=== PATIENT | male | born 1930 | race Caucasian/White ===

== ENCOUNTER 2016-11-27 14:31 | Inpatient (IN) | payer MEDICARE, OTHER ==
--- NOTE | ~2016-11-27 | HP ---
History And Physical [id number] [place]. [address] NAME: LUIS CHAN : 31 STATUS : ADM IN [facility]#: [id number] AGE: 86 ADM/REG DATE : 11/27/16 MR#: [id number] REPORT SERV DATE: 11/28/16 DICTATED BY: BAYRON REYNOLDS DATE: 11/27/16 REPORT STATUS : Draft TRANSCRIBED BY: MODL DATE: 11/27/16 DATE OF ADMISSION: 11/27/2016 IDENTIFICATION/CHIEF COMPLAINT: Mr. Chan is an 86-year-old gentleman who presents with left hip pain. HISTORY OF PRESENT ILLNESS: The patient has multiple medical problems and on 10/06/2016 he unfortunately fell. He subsequently developed some discomfort about his back and hip region and was admitted to the hospital on 10/10/2016 with this problem. He had multiple medical problems at the same time and subsequently with persistent pain, came to hip examination and x-rays that revealed an impacted left hip fracture for which on 10/15/2016 with informed consent, he came to surgery being closed reduction and internal fixation with three screws. Postoperatively, he had a relatively benign course and was discharged to [facility] for further care on 10/18/2016. After being seen in the office on 11/13/2016 with good looking x-rays, he was begun gentle weightbearing, but had pain developed and worsened over the course of the week. An x-ray was obtained yesterday revealing cut out of the most proximal screw and he presented to the office today for assessment. It was felt that he had propagated the fracture and the screw had cut out, and his fracture site was not healing well. He subsequently was admitted for more definitive care. 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 PAST SURGICAL HISTORY: TURP, elbow cyst surgery, foot surgery, skin cancer removed from scalp, IVC filter placement, and on 10/15/2016 hip pinning. MEDICATIONS: Omeprazole, potassium, aspirin, citalopram, dutasteride, isosorbide, lisinopril, multivitamin, furosemide, iron, , carvedilol, Coumadin, Ativan, simvastatin, oxygen at 2 liters/minute, guaifenesin, [place], nitroglycerin p.r.n., and Zofran p.r.n. ALLERGIES: PENICILLIN AND CLINDAMYCIN. SOCIAL HISTORY: The patient currently is a resident at [facility]. PHYSICAL EXAMINATION: GENERAL: Reveals a quite 86-year-old gentleman who is sitting in his wheelchair, somewhat sedated, and minimally communicative. HEAD AND NECK: He is able to move his head and neck, which are nontender. CHEST: Clear to auscultation. CARDIAC: Regular rate and rhythm. ABDOMEN: Soft and nontender. EXTREMITIES: Both upper extremities and right lower extremity, benign. Left lower History And Physical [address] [address] NAME: LUIS CHAN : 32 STATUS : ADM IN [facility]#: [id number] AGE: 86 ADM/REG DATE : 11/27/16 MR#: [id number] REPORT SERV DATE: 11/28/16 DICTATED BY: BAYRON REYNOLDS DATE: 11/27/16 REPORT STATUS : Draft TRANSCRIBED BY: WILSON DATE: 11/27/16 extremity is with painful range of motion, somewhat shortened, but neurovascularly intact to screening exam. His prior incisions healed well without evidence of fullness or pathology. DIAGNOSTIC DATA: X-rays reviewed in office today revealing evidence of his femoral neck fracture to have displaced and the most proximal screw has cut through the superior portion of the femoral head and is sitting at the lateral rim of the acetabulum. There are no other findings and cartilage joint space overall otherwise looks excellent. ASSESSMENT: Six weeks status post left hip CRPP having healed uneventfully, however, with beginning weightbearing last week, started having increasing pain, now has had failure of healing and now screw cut out superiorly. PLAN: At this point, we had a long discussion regarding options with he and his family and elect to proceed with admission to the hospital, medical assessment, and optimization, reversal of Coumadin, and we will proceed with conversion to a hemiarthroplasty with removal of current hardware. This was discussed with family at length. They do understand the informed consent issues regarding this procedure as well as this having been a possibility with his impacted fracture that we discussed in early October. At this point, they wish to proceed. EKATERINA/WILSON Bayron Reynolds M.D. / [id number] CC: Geovany Sebastian M.D.
--- NOTE | ~2016-11-27 | CN ---
Consultation Report [facility] [address] [place]. [address] NAME: LUIS CHAN : 32 STATUS : ADM IN PAT#: [id number] AGE: 86 ADM/REG DATE : 11/27/16 MR#: [id number] REPORT SERV DATE: 11/28/16 DICTATED BY: SERGIO GARCIA DATE: 11/28/16 REPORT STATUS : Draft TRANSCRIBED BY: MODL DATE: 11/28/16 CARDIOLOGY CONSULTATION DATE OF CONSULTATION: 11/28/2016 REASON FOR CONSULTATION: Cardiac risk assessment. HISTORY OF PRESENT ILLNESS: Mr. Chan is an 86-year-old male, known to me from the outpatient setting, who was admitted to the hospital under the care of Dr. Reynolds for anticipated revision of recent surgical intervention of left hip fracture. The patient has had decreased ambulation and increased pain with recent outpatient imaging demonstrating propagation of fracture at the site of previous repair on 10/15/2016. Based on these findings, he was admitted electively for a planned surgical repair this admission. From a cardiac standpoint, his history is notable for ST elevation NM in 01/2016, at which time his RCA was managed with a long drug-eluting stent. Postoperatively, he had some issues over the ensuing months with bleeding secondary to history of bladder cancer and the decision was ultimately made to discontinue his Plavix. He has continued on aspirin since then and has done well and although he has had occasional episodes of chest pain, these have been managed medically and there have been no recurrent cardiovascular events. He was started on Coumadin after his recent hip surgery and has been maintained on that. History is limited due to the patient's underlying progressive dementia, but per his son, who is at bedside, he has not had any complaints of chest pain. An echocardiogram in the outpatient setting recently demonstrated an improvement in his ejection fraction to 50% with no valvular disease. At this time, the patient is a bit confused after having a narcotic administered, but there is no additional history here the son provides. PAST MEDICAL HISTORY: 1. Hip fracture, status post closed reduction and pinning in 10/2016. 2. Coronary artery disease, history of STEMI in 01/2016, status post PCI with drug-eluting stent. 3. Heart failure with preserved ejection fraction estimated 50% by last echocardiogram. 4. History of DVT, on oral anticoagulant/warfarin, status post IVC filter. 5. Dementia. 6. Hypertension. 7. Hyperlipidemia. 8. Chronic kidney disease. 9. History of bladder cancer. MEDICATIONS: Reviewed per medical record notable for aspirin 81, warfarin, Coreg 6.25, Lasix, simvastatin, Imdur, lisinopril. Consultation Report [address]. [address] NAME: LUIS CHAN : 31 STATUS : ADM IN PAT#: [id number] AGE: 86 ADM/REG DATE : 11/27/16 MR#: [id number] REPORT SERV DATE: 11/28/16 DICTATED BY: SERGIO GARCIA DATE: 11/28/16 REPORT STATUS : Draft TRANSCRIBED BY: WILSON DATE: 11/28/16 ALLERGIES: PENICILLIN AND CLINDAMYCIN. FAMILY HISTORY: Noncontributory. 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 He has a history of remote tobacco abuse, 80-[id number]-[id number] history, quit many years ago. He has two sons, one of whom is at bedside and heavily involved in his care. REVIEW OF SYSTEMS: Per HPI; otherwise, negative. PHYSICAL EXAMINATION: VITAL SIGNS: Temperature 97.3, pulse 77, blood pressure 159/70, 94% on 1 L nasal cannula. GENERAL: Well-developed male, in no apparent distress. HEENT: Sclerae anicteric. Mucous membranes are moist. NECK: Supple. CARDIOVASCULAR: Regular. S1, S2. No murmurs appreciated. PULMONARY: Diminished inspiratory effort. Clear lung del rio bilaterally. ABDOMEN: Soft, nondistended, nontender. EXTREMITIES: Warm. Edema is present at the ankles. LABORATORY DATA: WBC 7.9, hemoglobin 12, hematocrit 36.1, platelets 281. Sodium 139, potassium 4.7, chloride 103, bicarb 28, BUN 34, creatinine 1.59, protein 6.3, albumin 2.5. AST and ALT 13 and 15. Chest x-ray demonstrates atelectasis on the right. No obvious cardiomegaly or airspace opacity. BNP 335. STUDIES: I reviewed the patient's cardiac catheterization. It demonstrated a good result after stenting on the right and nonobstructive disease in the left coronary circulation. EKG is not on the chart. An echocardiogram from 10/2016 has been reviewed, notable for an EF of 50%, no valvular heart disease, hypokinesis of the inferior wall. IMPRESSIONS/RECOMMENDATIONS: 1. Recent hip fracture, status post closed reduction/fixation with propagation. 2. Coronary artery disease, status post prior percutaneous coronary intervention in 01/2016 with drug-eluting stent, currently off Plavix, on aspirin and Coumadin. 3. History of deep vein thrombosis. 4. Heart failure with preserved ejection fraction. 5. Hypertension. 6. Chronic kidney disease. The patient has multiple medical issues, but of unique importance in the perioperative period is his history of coronary artery disease. Although he has had a drug-eluting stent, Consultation Report [facility] [address] [facility] [place]. [address] NAME: LUIS CHAN : 32 STATUS : ADM IN [facility]#: [id number] AGE: 86 ADM/REG DATE : 11/27/16 MR#: [id number] REPORT SERV DATE: 11/28/16 DICTATED BY: SERGIO GARCIA DATE: 11/28/16 REPORT STATUS : Draft TRANSCRIBED BY: WILSON DATE: 11/28/16 he has done well off Plavix with no recurrent events. Obviously, surgery increases his risk of a cardiovascular event and this is best managed by continuing his aspirin if it is felt reasonable to do so from the orthopedic standpoint. I would strongly favor this. We will check an EKG this morning, but unless there are dramatic ischemic changes, I would favor no additional cardiac testing and proceeding with surgery, albeit at elevated risk due to his complicated cardiovascular history. I will continue to evaluate the patient clinically and if there are any signs or symptoms suggestive of a coronary event, we can treat this as needed, but I am reassured by his good angiographic result and lack of obstructive disease on his prior cardiac cath and the duration of approximately 10 months since his NM that this is an unlikely clinical occurrence if aspirin is to be continued. Thank you for the consultation. We will follow with you. BENJIE/WILSON Sergio Garcia MD / [id number] CC: Geovany Sebastian M.D.
--- NOTE | ~2016-11-27 | DS ---
Discharge Summary [facility] [address] [place]. [address] NAME: LUIS CHAN : 32 STATUS : DIS IN PAT#: [id number] AGE: 86 ADM/REG DATE : 11/27/16 MR#: [id number] REPORT SERV DATE: 12/19/16 DICTATED BY: BAYRON REYNOLDS DATE: 12/18/16 REPORT STATUS : Draft TRANSCRIBED BY: WILSON DATE: 12/18/16 Data Collection from hospitalization DISCHARGE DIAGNOSES: 1. Left failed closed reduction percutaneous pinning femoral neck fracture (hip). 2. Hypertension. 3. Congestive heart failure. 4. Coronary artery disease. 5. History of ST-elevation myocardial infarction. 6. History of cerebrovascular accident x3. 7. Dementia. 8. History of bladder cancer. 9. Chronic kidney disease. 10.Essential tremor. 11.Benign prostatic hypertrophy. 12.History of pancreatitis. 13.Peptic ulcer disease. 14.Hypercholesterolemia. CONSULTATIONS: Shilpa José NP. Dr. Sergio Garcia. Dr. Bayron Montgomery. PROCEDURE: Left hip conversion from closed reduction, percutaneous pinning, left hip hemiarthroplasty, 12/02/2016. PATHOLOGY: Femoral head with extensive medullary hemorrhage and fibrosis (history of fracture), left hip. DISCHARGE MEDICATIONS: Aspirin 81 mg every morning, Coreg 6.25 mg twice a day, Celexa 20 mg every morning, Mycelex 10 mg five times a day as instructed, Colace 100 mg twice a day, Avodart 0.5 mg every morning, ferrous sulfate 325 mg twice a day, Imdur 30 mg every morning, Prinivil 10 mg every morning, multivitamins with minerals one tablet every morning, Prilosec 20 mg before breakfast, Mirapex 0.125 mg at bedtime, Seroquel 12.5 mg at bedtime, Zocor 40 mg at bedtime, Demadex 20 mg daily, Tylenol 650 mg every four hours as needed, Dulcolax 15 mg as needed, Nitrostat 0.4 mg as needed, Zofran 4 mg every four hours as needed, MiraLAX powder 17 g every morning, Seroquel 12.5 mg at bedtime as needed, Klor-Con 20 mEq every morning, Med Plus 60 mL twice a day, XPECT 400 mg daily as needed, Ultram 50 mg one to two tablets every six hours as needed for pain. CONDITION ON DISCHARGE: Stable. DISPOSITION: The patient was discharged to [facility]. HOSPITAL COURSE: This is an 86-year-old man, who presented to the hospital with left hip pain. He had a fall and subsequently developed some discomfort in his back and hip region. He had been admitted to the hospital on 10/10/2016 with this problem. He has multiple medical problems and subsequently had persistent pain. X-rays had revealed an impacted left hip fracture. On 10/15/2016, he had undergone surgical intervention with closed reduction and internal fixation with three screws. Postoperatively, he had a relatively benign course Discharge Summary [id number] [place]. [address] NAME: LUIS CHAN : 31 STATUS : DIS IN PAT#: [id number] AGE: 86 ADM/REG DATE : 11/27/16 MR#: [id number] REPORT SERV DATE: 12/19/16 DICTATED BY: BAYRON REYNOLDS DATE: 12/18/16 REPORT STATUS : Draft TRANSCRIBED BY: WILSON DATE: 12/18/16 and was discharged to [facility] for further care on 10/18/2016. After being seen in the office on 11/13/2016 with good looking x-rays, he started gentle weightbearing, but then he had pain that developed and worsened over the course of the week and x-ray was obtained on the day prior to this admission revealing cut out of the most proximal screw. It was felt that he had propagated the fracture and the screw had cut out, and his fracture site was not healing well. He was admitted to the hospital at this time for further evaluation and treatment. Upon admission, a long discussion was held regarding treatment options with the patient and his family. We were going to perform reversal of Coumadin and then proceed with conversion to a hemiarthroplasty with removal of the current hardware. This was discussed with the patient's family at length and they wanted to proceed. He was seen by Shilpa José. The patient has had three cerebrovascular accidents in the past. He was confused. He does have a history of TIA. He was off his Coumadin at this time. He did have mechanical DVT prophylaxis. Coreg and Imdur were continued. He was also off aspirin, which would be resumed postoperatively. He has a history of myocardial infarction in January of 2016. He was placed on a cardiac diet. Nitroglycerin would be ordered as needed if he had chest pain. He is on several cardiac medications that will be continued, and his blood pressure is controlled at the present time. Potassium was held. Avodart was continued for his benign prostatic hypertrophy. Zocor was continued. We were going to check hemoglobin A1c. Following day, he was seen by Dr. Sergio Garcia for cardiac risk assessment. From a cardiac standpoint, his history is notable for ST-elevation myocardial infarction in 2015 at which time, his right coronary artery was managed with a long drug-eluting stent. Postoperatively, he had some issues over the ensuing months with bleeding secondary to a history of bladder cancer, and the decision was ultimately made to discontinue his Plavix. He had continued on aspirin since then and had done well, although he had occasional episodes of chest pain. These had been managed medically and there had been no recurrent cardiovascular events. He had been started on Coumadin after his recent hip surgery and had been maintained on that. He does have progressive dementia. Surgery increases his risk of a cardiovascular event and it was felt this would best be managed by continuing his aspirin if it was felt reasonable to do so from an orthopedic standpoint. He strongly favored this. An EKG was going to be obtained, but unless there were dramatic ischemic changes, he would favor no additional cardiac testing and proceeding with surgery. Chest x-ray showed right pleural effusion. On 11/29/2016, INR level was still elevated. Surgery was on hold. Warfarin remained on hold at this time. Creatinine level decreased to 1.19. He did have left hip pain. Over the next couple of days, plans were being made to proceed with surgical intervention. On 12/30/2016, he was taken to the operating room, where he underwent the above-mentioned procedure. He tolerated this well and there were no complications. On postop day #1, he was up sitting on the right side of the bed. He was going to begin physical therapy that day, had some confusion and agitation. His dressings were clean, dry, and intact. He was evaluated by Occupational and Physical Therapy. On 12/04/2016, Speech/Language Pathology performed a bedside swallow evaluation. Aspiration precautions were in place. The patient did have overt signs and symptoms of aspiration. The patient was seen by Dr. Bayron Montgomery. The patient did have some hematuria. The patient does have benign prostatic hypertrophy, recommended leaving the Delvalle in place and minimize his blood thinner. He had had some blood-tinged urine with clots in his diaper. On Discharge Summary [id number] [place]. [address] NAME: LUIS CHAN : 31 STATUS : DIS IN PAT#: [id number] AGE: 86 ADM/REG DATE : 11/27/16 MR#: [id number] REPORT SERV DATE: 12/19/16 DICTATED BY: BAYRON REYNOLDS DATE: 12/18/16 REPORT STATUS : Draft TRANSCRIBED BY: MODL DATE: 12/18/16 12/05/2016, he had slept well. IV hydralazine was being given as needed. Lisinopril was continued. Creatinine level was 1.14. Blood pressure was stable. There was destiny blood noted in the Delvalle catheter. All of his narcotics and sedatives were held due to his acute encephalopathy. Speech/Language pathology performed another bedside swallow evaluation. He did have overt signs and symptoms of aspiration with thin liquids. Aspiration precautions remained in place. On 12/07/2016, the head of his bed was elevated at 30 degrees. SAL hose was in place. INR level was 1.3. He was off aspirin and Coumadin. Proton pump inhibitor continued. Creatinine level was 0.89. His urine was yellow. He was much more alert. He was eating well. The next day, he seemed to be doing much better. He did not sleep well the previous evening. SAL hose remained in place. Hematuria resolved. He had had some leg cramping. Seroquel was being given. On 12/09/2016, he slept very well the previous evening. Discharge instructions were given. Due to his improved and stable condition, he was discharged to [facility] with the above-stated instructions. Information collected by: Laurie Krueger I submit the above information as my discharge summary. TG/WILSON aByron Reynolds M.D. / [id number] CC: Geovany Sebastian M.D. Bayron Montgomery M.D. MD Ruben Angela MD [facility]
--- NOTE | ~2016-11-27 | OP ---
Record Of Operation [facility] [address] [place]. [address] NAME: LUIS CHAN : 32 STATUS : ADM IN PAT#: [id number] AGE: 86 ADM/REG DATE : 11/27/16 MR#: [id number] REPORT SERV DATE: 12/03/16 DICTATED BY: BAYRON REYNOLDS DATE: 12/02/16 REPORT STATUS : Draft TRANSCRIBED BY: MODL DATE: 12/02/16 DATE OF PROCEDURE: POSTOPERATIVE DIAGNOSES: Left failed closed reduction percutaneous pinning, femoral neck fracture (hip). POSTOPERATIVE DIAGNOSES: Left failed closed reduction percutaneous pinning, femoral neck fracture (hip). PROCEDURES PERFORMED: 1. Left hip conversion from closed reduction percutaneous pinning. 2. Left hip hemiarthroplasty. SURGEON: Bayron Reynolds M.D. ROLLER CHECKER: Michel Anaya. ANESTHESIA: General. PROCEDURE IN DETAIL: The patient was clearly identified and after obtaining informed consent, was brought to the operating room at [facility] where he was induced under general anesthesia, placed carefully in the right lateral decubitus position and has his left lower extremity and flank prepped and draped in usual manner. This concluded, after appropriate time-out procedure was performed, the distal incision that was used previously to place the three screws into the femoral head region is opened and subsequently by gently palpating the soft tissues, the screw heads were not easily found within the soft tissues. It was felt appropriate to begin the approach then. Therefore, the posterolateral approach to the hip is formed. Skin was divided, fascial planes were elevated. Hemostasis was obtained with electrocautery and a Charnley retractor was applied. Palpating more distally along the approach, the screws were identified, but there was a lot of fibrous tissue over this area. Therefore, the incisions were then joined surgery whereupon the screw heads were then visualized and carefully removed uneventfully. The piriformis more proximally that was identified, tagged, divided and retracted over the sciatic nerve, felt deep in the wound at which point, the joint capsule and short rotators were carefully divided. At which point, the hip fracture exposed, there was noted to be a delayed union, but there was no evidence of infection or other pathology. It was widely displaced and the screw was prominent, exposing the femoral neck. It was divided uneventfully, whereupon the femoral head and tissues were all removed. The acetabulum has minimal scuffing, overall looks rather reasonably acceptable for hemiarthroplasty and therefore, a trial of a 55-mm head looks excellent. The proximal femur was exposed, structures posteromedial to the greater trochanter removed followed by shiloie cutter, canal finder, reamer with lateralizing to size 8; whereupon broaching was performed with a size 8 stem. Excellent stability was noted. Trialing with a 1.5 neck length bipolar, there was excellent leg length, stability, and kickback. Lesser trochanters were then preserved at the appropriate position on the ischium when palpated. Whereupon the trials were removed, the permanent implants are uneventfully placed. At which point, the area was copiously irrigated. Tranexamic acid Record Of formerly [facility] [address] [place]. [address] NAME: LUIS CHAN : 32 STATUS : ADM IN [facility]#: [id number] AGE: 86 ADM/REG DATE : 11/27/16 MR#: [id number] REPORT SERV DATE: 12/03/16 DICTATED BY: BAYRON REYNOLDS DATE: 12/02/16 REPORT STATUS : Draft TRANSCRIBED BY: MODL DATE: 12/02/16 topically was used through the case. Whereupon this concluded the capsule piriformis, fascia overlying the screw holes, and deep fascia that is all closed in layers. Whereupon the legs then carefully cleansed and dressed. The patient was then allowed to awaken and was transferred to the recovery room in stable condition, having tolerated the procedure well. ESTIMATED BLOOD LOSS: 150 mL. FLUIDS: 500 mL. TOURNIQUET TIME: None. PATHOLOGY: Sent specimen. MICROBIOLOGY: None. COMPLICATIONS: None. SPONGE AND NEEDLE COUNTS: Reportedly correct. ANTIBIOTICS: Administered appropriately preoperatively and ordered to be discontinued within 23 hours. IMPLANTS: DePuy hip system, femur Speculator, size 8 standard +1.5/32 bipolar head with size 55. EKATERINA/HILDAL Bayron Reynolds M.D. / [id number] CC: Geovany Sebastian M.D.
--- NOTE | ~2016-11-27 | CN ---
Consultation Report [facility] [address] [place]. [address] NAME: LUIS CHAN : 32 STATUS : ADM IN PAT#: [id number] AGE: 86 ADM/REG DATE : 11/27/16 MR#: [id number] REPORT SERV DATE: 11/28/16 DICTATED BY: SHILPA RAINEY DATE: 11/28/16 REPORT STATUS : Draft TRANSCRIBED BY: MODL DATE: 11/28/16 CONSULTATION DATE OF CONSULTATION: 11/27/2016 REQUESTING PHYSICIAN: Mike Reynolds M.D. IDENTIFYING DATA: 1. PCP, Bird Clement at the [facility] and also, the patient sees Dr. Ruben Gillette at the [facility]. 2. Packaging Mechanic, Sergio Garcia MD. 3. Neurologist in the past, Pari Yates MD. 4. Urologist, Dick Hurtado M.D. 5. Orthopedist, Mike Reynolds M.D. HISTORY OF PRESENT ILLNESS: This is an 86-year-old male with a longstanding history of coronary artery disease as well as CVA x3, a DVT with IVC filter, TIAs, PA, hypercholesterolemia, CHF, chronic kidney disease stage III. He presents to Dr. Mike Reynolds for being admitted for left femoral neck fracture with a failed implant. The patient previously had surgery on the left hip on 10/15/2016. Now, the implant has failed. We were consulted for surgical clearance and risk for possible surgery in the a.m. for left hip conversion to a hemiarthroplasty. The patient's history was obtained through interview with the patient's son, Luis Chan, and the patient is pleasantly confused at present time. He is taking p.o. medications for pain. Also, coupled with review of information was obtained in [place], [facility], senior environmental consultant's notes, and some old medical records. PAST MEDICAL HISTORY: 1. CVA x3, last noted in 11/2015. 2. Hypertension. 3. Dementia. 4. Hearing loss for which he uses hearing aids. 5. Essential tremor. 6. Chronic lymphedema. 7. Coronary artery disease. 8. DVT in 2011 with IVC filter. 9. Hypercholesterolemia. 10.TIA 11/26/2014. 11.PA 01/13/2016. 12.Colon polyps. 13.Pancreatitis. 14.PUD. 15.CHF with EF noted at 45% to 50%. 16.Presbyopia. 17.Positive TB test in the past. Consultation Report [facility] [address] [place]. [address] NAME: LUIS CHAN : 31 STATUS : ADM IN PAT#: [id number] AGE: 86 ADM/REG DATE : 11/27/16 MR#: [id number] REPORT SERV DATE: 11/28/16 DICTATED BY: SHILPA RAINEY DATE: 11/28/16 REPORT STATUS : Draft TRANSCRIBED BY: MODL DATE: 11/28/16 18.Arthritis. 19.Bladder cancer. 20.UTI that was previously positive with Morganella and Citrobacter. 21.Chronic kidney disease stage III with baseline creatinine of 1.4-1.8. 22.Bladder tumor. 23.PTSD. HOME MEDICATIONS: 1. Aspirin 81 mg p.o. every morning. 2. Coreg 6.25 mg p.o. twice a day. 3. Celexa 20 mg p.o. every morning. 4. Avodart 0.5 mg p.o. every morning. 5. Ferrous sulfate 325 mg p.o. twice a day. 6. Lasix 20 mg p.o. before breakfast and supper. 7. Guaifenesin 400 mg p.o. daily p.r.n. cough. 8. [place] 7.5/325 mg one tablet p.o. every four hours p.r.n. 9. Imdur 30 mg p.o. every morning. 10.Lisinopril 10 mg p.o. every morning, held for systolic blood pressure less than 90. 11.Ativan 0.25 mg p.o. at bedtime. 12.Multivitamin with minerals tablet, one tablet p.o. every morning. 13.Nitrostat stat 0.4 mg sublingual p.r.n. chest pain. 14.Omeprazole or Prilosec 20 mg p.o. before breakfast. 15.Zofran 4 mg p.o. every four hours p.r.n. nausea. 16.MiraLAX powder 17 g p.o. every morning. 17.Potassium chloride 20 mEq p.o. every morning. 18.Zocor 40 mg p.o. at bedtime. 19.Medication named Med Plus 2.0, 60 mL p.o. twice a day for decreased albumin. 20.Coumadin 5 mg p.o. before supper. ALLERGIES: NOTED ASPIRIN AND PENICILLIN EVEN THOUGH THE PATIENT IS ON HOME MEDICATION OF ASPIRIN 81 MG P.O. EVERY MORNING. SOCIAL HISTORY: The patient had previous tobacco use, but quit years ago, was a 30-pack a year smoker. Has two sons. 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 Has a single level home. Uses a walker and has a handicap van. FAMILY HISTORY: The patient is an only child. Mother had CHF, hip problems, dementia and was at 85 years old. Father had a hip repair, at 86 years old. PAST SURGICAL HISTORY: 1. Prostate symptoms, BPH on 06/04/2012 for which the patient had a cystoscopy with TURP. 2. Skin cancer on his head removed. 3. IVC filter placed in 2011 for DVT. 4. Cardiac cath with percutaneous coronary intervention on 01/13/2016. 5. Left elbow cyst removed. Consultation Report [address] [place]. [address] NAME: LUIS CHAN : 32 STATUS : ADM IN [facility]#: [id number] AGE: 86 ADM/REG DATE : 11/27/16 MR#: [id number] REPORT SERV DATE: 11/28/16 DICTATED BY: SHILPA RAINEY DATE: 11/28/16 REPORT STATUS : Draft TRANSCRIBED BY: WILSON DATE: 11/28/16 6. Bilateral cataract surgery in May of 2015. 7. History of bladder cancer for which he receives a TURP in 2011. REVIEW OF SYSTEMS: Negative other than what is in HPI. The patient is confused pleasantly at present. He is on p.o. pain medication for his left heel. He has no shortness of breath. No fever. No chest pain. No nausea and vomiting. No abdominal pain. Displays no agitation. PHYSICAL EXAMINATION: VITAL SIGNS: Vital signs from today; blood pressure 105/66, respiratory rate 16, heart rate 67, temperature 98.3, O2 sat 94% on room air. NEUROLOGIC: This is a pleasant 86-year-old male, resting in bed, playing with his IV tubing. He is pleasantly confused, but in no acute distress. HEAD: Atraumatic, normocephalic. NECK: Supple. Trachea is midline. No JVD noted. No obvious thyromegaly or lymphadenopathy. EENT: Sclerae are nonicteric. Pupils are equal, reactive to light. His nares are patent. His mucous membranes are moist. His tongue is midline without deviation. His soft palate rises equally on phonation. CHEST: He has no pain with palpation. LUNGS: Clear to auscultation bilaterally. Has normal respiratory effort. No increased work of breathing with conversation. CARDIOVASCULAR: S1, S2. Placed in order for defensive monitoring with continuous O2 sats, auscultation of regular rhythm, rate presently at 70. ABDOMEN: Soft, nontender. Bowel sounds are active. No organomegaly palpable. He does have an adult diaper in place for urinary incontinence. EXTREMITIES: Pulses are present bilaterally, but diminished. No calf tenderness. He does have bilateral edema. Has SCDs and TEDs for prophylaxis. SKIN: Warm and dry. No unusual rashes or lesions. Normal color and turgor for age. PSYCHIATRIC: The patient is pleasant, not cooperative at present time. He is confused. His son is at bedside to reorient him. LABORATORY DATA: Sodium 139, potassium 4.7, chloride 103, BUN 34, creatinine 1.59, GFR 45, glucose 116, calcium 8.9. White blood cell 7.9, hemoglobin 12.0, hematocrit 36.1, platelets 280. INR 2.8. ALT 15, AST 13, total bilirubin 0.6, alkaline phosphatase 74. The patient has a chest x-ray that was ordered. EKG from today on 11/27/2016 is normal sinus rhythm with a sinus arrhythmia. Interpretation of left axis deviation with a pulmonary disease pattern. Echo obtained on 10/13/2016 noted systolic CHF with an EF of 45% to 50%, mild diastolic dysfunction, normal RV size and systolic function. ASSESSMENT AND PLAN: 1. The patient has had cerebrovascular accident x3 in the past. He is presently confused. He also has a history of TIAs. We are aware. The son relates that post CVA, he has Consultation Report [address] [place]. [address] NAME: LUIS CHAN : 32 STATUS : ADM IN [facility]#: [id number] AGE: 86 ADM/REG DATE : 11/27/16 MR#: [id number] REPORT SERV DATE: 11/28/16 DICTATED BY: SHILPA RAINEY DATE: 11/28/16 REPORT STATUS : Draft TRANSCRIBED BY: WILSON DATE: 11/28/16 occasional shaking when he is walking to have left lower extremity weakness of the left leg for which he uses a walker. Presently, the patient is pending surgery. He is off Coumadin. He has mechanical DVT prophylaxis. We will continue his Coreg, his Imdur. He is also off aspirin, to be resumed postop surgery. 2. Myocardial infarction. The patient is positive for an PA on 01/13/2016. We will place him on a cardiac diet. He will need to be on continuous defensive monitoring to watch his EKG and his O2 sats. He has p.r.n. nitroglycerin ordered if he has chest pain. 3. Hypertension. Aware. The patient is on several cardiac medications that will be continued and his blood pressure is controlled at previous. At the previous time, his blood pressure is 105/66. 4. Chronic kidney disease stage III. Aware. His baseline creatinine is 1.4-1.8. We will need to monitor his labs postoperatively and watch his IV fluids enough to hydrate him without over hydration. 5. Congestive heart failure. Aware. He has an EF of 45% to 50%. IV fluid at present at KVO. The patient is on Lasix, which will be held for now pending surgery. We will also hold his potassium. His potassium at present time is 4.7 and we will continue to monitor his labs which will include a BNP and a CMP for a.m. 6. Benign prostatic hypertrophy. Aware. We will continue his Avodart. 7. Hypercholesterolemia. Aware. We will continue his Zocor. Labs to be obtained are CMP, CBC, urinalysis, EKG, portable chest x-ray, BNP, PT and PTT, a type and crossmatch, magnesium, hemoglobin A1c. His information was obtained from his son who is POA, Luis Chan. The patient has previously resided in [place] operated by [facility] for which he had rehab from 10/18/2016 and his present hip surgery was on 10/15/2016. After ambulation, the patient has a failed implant. We are asked to consult for surgical clearance and risk. This 86-year-old gentleman who has known cardiac disease, PA as well as CVA and bladder cancer in the past, DVT with IVC filter, is a high risk based on age and comorbidities. We will recommend reviewing everything this morning lab jefferson as well as anything ordered by the a.m. team in evaluation of him prior to surgery. The patient's son understands that his father is a high risk for surgery and he will discuss that with the a.m. team as well as with Dr. Mike Reynolds. We will recommend hand surgery at Dr. Reynolds's discretion. Presently, the patient's Lasix, Coumadin, aspirin, KCl, and lisinopril are held until evaluation by physicians whether to continue or hold until after his surgical intervention. The hospitalist group would like to thank you for this consultation. Please let us know if we can be of any further assistance. MARTHA Shilpa Rainey NP / [phone] Consultation Report [address] [address] NAME: LUIS CHAN : 32 STATUS : ADM IN PAT#: [id number] AGE: 86 ADM/REG DATE : 11/27/16 MR#: [id number] REPORT SERV DATE: 11/28/16 DICTATED BY: SHILPA RAINEY DATE: 11/28/16 REPORT STATUS : Draft TRANSCRIBED BY: WILSON DATE: 11/28/16 CC: Geovany Sebastian M.D.
[~2016-11-27 14:31] MED LIST: ASAB PO; AVODART PO; CELEXA20 PO; CHOLESTEROL MED PO; CIP2 PO; COREG6 PO; DRAMAMINE25 MG PO; IMDUR30 PO; K-TABS10 MEQ PO; KDUR20 PO; KLOR-CON M1010 MEQ PO; L20 PO; LIPITOR40 PO; LISINOPRIL40 MG PO; MAXIMUM D3; MAXIMUM D3 PO; MCZ25 PO; MUCINEX CGH1 ML PO; NITROSTAT0.4 MG SL; PCET PO; PLAVIX PO; PRILO PO; PRILOSEC40 MG PO; PRIN10 PO; VITAMIN D31000 UNIT PO; ZOCOR20 PO; ZOCOR40 PO; ZOCOR80 MG PO
[2016-11-27 17:02] LABS: BASOPHILS 0.1 %; BASOPHILS ABSOLUTE 0.01 10/3/uL (0.0-0.16); EOSINOPHILS 0.6 %; EOSINOPHILS ABSOLUTE 0.05 10/3/uL (0.0-0.53); IMMATURE GRANULOCYTES 0.3 %; IMMATURE GRANULOCYTES ABSOLUTE 0.02 10/3/uL (0.0-0.11); LYMPHOCYTES 20.7 %; LYMPHOCYTES ABSOLUTE 1.63 10/3/uL (0.67-4.30); MEAN CORPUS HGB CONC 33.2 g/dL (32.0-36.0); MEAN CORPUSCULAR HEMOGLOB 32.2 pg (26.0-34.0); MEAN CORPUSCULAR VOLUME 96.8 fL (80-100); MEAN PLATELET VOLUME 8.8 fL (9.2-13.0); MONOCYTES 7.5 %; MONOCYTES ABSOLUTE 0.59 10/3/uL (0.21-1.20); NEUTROPHILS 70.8 %; NEUTROPHILS ABSOLUTE 5.58 10/3/uL (2.02-8.40); RBC DISTRIBUTION WIDTH 13.9 % (12.0-16.0); RED CELL COUNT 3.73 10/6/uL (4.7-6.1); WHITE BLOOD CELLS 7.9 10/3/uL (4.5-10.5)
[2016-11-27 17:03] LABS: HEMATOCRIT 36.1 % (40.0-51.0); MANUAL DIFF NO %; PLATELET COUNT 280 10/3/uL (150-400)
[2016-11-27 17:10] LABS: INTERNATIONAL NORMAL RATI 2.8 UNITS (-); PARTIAL THROMBO TIME 45.1 SEC (22.5-37.2); PROTIME (NOT ORD) 29.5 SEC (12.0-14.5)
[2016-11-27 17:21] LABS: A/G RATIO 0.7 (0.7-1.9); ALBUMIN 2.5 G/DL (3.5-5.0); CALCIUM, SERUM 8.9 MG/DL (8.5-10.4); CHLORIDE, SERUM 103 MMOL/L (96-112); CO2 (CARBON DIOXIDE) 28 MMOL/L (24-34); CREATININE 1.59 MG/DL (0.70-1.30); GFR AFRICAN AMERICAN 45 ML/MIN (>=60); GFR NON AFRICAN AMERICAN 39 ML/MIN (>=60); GLOBULIN 3.8 G/DL (2.5-4.1); GLUCOSE, SERUM 116 MG/DL (60-99); POTASSIUM, SERUM 4.7 MMOL/L (3.5-5.3); SGOT(AST) 13 U/L (5-40); SGPT(ALT) 15 U/L (5-65); SODIUM, SERUM 139 MMOL/L (135-148); TOTAL BILIRUBIN 0.6 MG/DL (0-1.2); TOTAL PROTEIN 6.3 G/DL (6.0-8.5)
[2016-11-27 17:23] LABS: ALKALINE PHOSPHATASE 74 U/L (45-117); BUN (BLOOD UREA NITROGEN) 34 MG/DL (6-23)
[2016-11-27] MEDS ORDERED: CELEXA20 PO (21:32)
[2016-11-27] MEDS ORDERED: AVODART PO (21:32)
[2016-11-27] MEDS ORDERED: L20 PO ×2 (21:33→21:39)
[2016-11-27] MEDS ORDERED: IMDUR30 PO (21:33)
[2016-11-27] MEDS ORDERED: PRIN10 PO (21:34)
[2016-11-27] MEDS ORDERED: MULTIVIT/MIN PO (21:34)
[2016-11-27] MEDS ORDERED: PRILO PO (21:35)
[2016-11-27] MEDS ORDERED: KLOR-CON M2020 MEQ PO (21:35)
[2016-11-27] MEDS ORDERED: FERROUS SULF325 M1 PO (21:36)
[2016-11-27] MEDS ORDERED: ZOCOR80 MG PO (21:36)
[2016-11-27] MEDS ORDERED: ZOCOR40 PO (21:37)
[2016-11-27] MEDS ORDERED: MED PLUS 2.0 PO (21:38)
[2016-11-27] MEDS ORDERED: MIRALAX POWDER1 PKT PO (21:38)
[2016-11-27] MEDS ORDERED: ATV.5 PO (21:40)
[2016-11-27] MEDS ORDERED: C5 PO (21:40)
[2016-11-27] MEDS ORDERED: XPECT400 MG PO (21:42)
[2016-11-27] MEDS ORDERED: NORCO1 TA2 PO (21:42)
[2016-11-27] MEDS ORDERED: ZOFRAN4 PO (21:43)
[2016-11-27] MEDS ORDERED: NITROSTAT0.4 MG PO (21:43)
[2016-11-27] MEDS ORDERED: ASAB PO (21:44)
[2016-11-27] MEDS ORDERED: COREG6 PO (21:44)
[2016-11-29 06:58] LABS: BASOPHILS 0.3 %; BASOPHILS ABSOLUTE 0.02 10/3/uL (0.0-0.16); EOSINOPHILS 1.4 %; EOSINOPHILS ABSOLUTE 0.09 10/3/uL (0.0-0.53); HEMATOCRIT 35.2 % (40.0-51.0); HEMOGLOBIN 11.6 g/dL (13.6-17.8); IMMATURE GRANULOCYTES 0.3 %; IMMATURE GRANULOCYTES ABSOLUTE 0.02 10/3/uL (0.0-0.11); LYMPHOCYTES 23.5 %; LYMPHOCYTES ABSOLUTE 1.46 10/3/uL (0.67-4.30); MEAN CORPUSCULAR HEMOGLOB 32.3 pg (26.0-34.0); MEAN CORPUSCULAR VOLUME 98.1 fL (80-100); MEAN PLATELET VOLUME 8.8 fL (9.2-13.0); MONOCYTES ABSOLUTE 0.62 10/3/uL (0.21-1.20); NEUTROPHILS 64.5 %; PLATELET COUNT 248 10/3/uL (150-400); RBC DISTRIBUTION WIDTH 13.4 % (12.0-16.0); RED CELL COUNT 3.59 10/6/uL (4.7-6.1); WHITE BLOOD CELLS 6.2 10/3/uL (4.5-10.5)
[2016-11-29 06:59] LABS: MANUAL DIFF NO %
[2016-11-29 07:05] LABS: INTERNATIONAL NORMAL RATI 2.1 UNITS (-)
[2016-11-29 07:06] LABS: PROTIME (NOT ORD) 23.1 SEC (12.0-14.5)
[2016-11-29 07:15] LABS: BUN (BLOOD UREA NITROGEN) 25 MG/DL (6-23); CHLORIDE, SERUM 105 MMOL/L (96-112); CO2 (CARBON DIOXIDE) 25 MMOL/L (24-34); CREATININE 1.19 MG/DL (0.70-1.30); GFR AFRICAN AMERICAN 64 ML/MIN (>=60); GFR NON AFRICAN AMERICAN 55 ML/MIN (>=60); GLUCOSE, SERUM 121 MG/DL (60-99); POTASSIUM, SERUM 4.2 MMOL/L (3.5-5.3); SODIUM, SERUM 138 MMOL/L (135-148)
[2016-11-30 06:33] LABS: BASOPHILS 0.1 %; BASOPHILS ABSOLUTE 0.01 10/3/uL (0.0-0.16); EOSINOPHILS ABSOLUTE 0.08 10/3/uL (0.0-0.53); HEMATOCRIT 33.8 % (40.0-51.0); HEMOGLOBIN 10.9 g/dL (13.6-17.8); IMMATURE GRANULOCYTES 0.1 %; IMMATURE GRANULOCYTES ABSOLUTE 0.01 10/3/uL (0.0-0.11); LYMPHOCYTES 17.4 %; LYMPHOCYTES ABSOLUTE 1.46 10/3/uL (0.67-4.30); MEAN CORPUS HGB CONC 32.2 g/dL (32.0-36.0); MEAN CORPUSCULAR HEMOGLOB 31.1 pg (26.0-34.0); MEAN CORPUSCULAR VOLUME 96.6 fL (80-100); MEAN PLATELET VOLUME 8.8 fL (9.2-13.0); MONOCYTES 8.7 %; MONOCYTES ABSOLUTE 0.73 10/3/uL (0.21-1.20); NEUTROPHILS 72.7 %; NEUTROPHILS ABSOLUTE 6.09 10/3/uL (2.02-8.40); PLATELET COUNT 254 10/3/uL (150-400); RBC DISTRIBUTION WIDTH 13.6 % (12.0-16.0); WHITE BLOOD CELLS 8.4 10/3/uL (4.5-10.5)
[2016-11-30 06:34] LABS: MANUAL DIFF NO %
[2016-11-30 06:36] LABS: PROTIME (NOT ORD) 22.1 SEC (12.0-14.5)
[2016-11-30 06:45] LABS: CALCIUM, SERUM 8.9 MG/DL (8.5-10.4); CHLORIDE, SERUM 105 MMOL/L (96-112); CO2 (CARBON DIOXIDE) 27 MMOL/L (24-34); CREATININE 1.13 MG/DL (0.70-1.30); GFR AFRICAN AMERICAN 68 ML/MIN (>=60); GFR NON AFRICAN AMERICAN 59 ML/MIN (>=60); GLUCOSE, SERUM 110 MG/DL (60-99); POTASSIUM, SERUM 4.3 MMOL/L (3.5-5.3); SODIUM, SERUM 139 MMOL/L (135-148)
[2016-11-30 06:46] LABS: BUN (BLOOD UREA NITROGEN) 21 MG/DL (6-23)
[2016-12-01 05:23] LABS: INTERNATIONAL NORMAL RATI 1.8 UNITS (-); PROTIME (NOT ORD) 20.4 SEC (12.0-14.5)
[2016-12-01 05:38] LABS: BASOPHILS 0.3 %; BASOPHILS ABSOLUTE 0.02 10/3/uL (0.0-0.16); EOSINOPHILS 0.7 %; EOSINOPHILS ABSOLUTE 0.05 10/3/uL (0.0-0.53); HEMATOCRIT 32.3 % (40.0-51.0); HEMOGLOBIN 10.8 g/dL (13.6-17.8); IMMATURE GRANULOCYTES 0.3 %; IMMATURE GRANULOCYTES ABSOLUTE 0.02 10/3/uL (0.0-0.11); LYMPHOCYTES 22.3 %; LYMPHOCYTES ABSOLUTE 1.62 10/3/uL (0.67-4.30); MEAN CORPUS HGB CONC 33.4 g/dL (32.0-36.0); MEAN CORPUSCULAR HEMOGLOB 32.8 pg (26.0-34.0); MEAN CORPUSCULAR VOLUME 98.2 fL (80-100); MONOCYTES 9.6 %; NEUTROPHILS 66.8 %; NEUTROPHILS ABSOLUTE 4.86 10/3/uL (2.02-8.40); PLATELET COUNT 248 10/3/uL (150-400); RBC DISTRIBUTION WIDTH 13.4 % (12.0-16.0); RED CELL COUNT 3.29 10/6/uL (4.7-6.1); WHITE BLOOD CELLS 7.3 10/3/uL (4.5-10.5)
[2016-12-01 05:45] LABS: MANUAL DIFF NO %
[2016-12-01 05:57] LABS: BUN (BLOOD UREA NITROGEN) 22 MG/DL (6-23); CALCIUM, SERUM 8.9 MG/DL (8.5-10.4); CHLORIDE, SERUM 103 MMOL/L (96-112); CO2 (CARBON DIOXIDE) 25 MMOL/L (24-34); CREATININE 1.05 MG/DL (0.70-1.30); GFR AFRICAN AMERICAN 75 ML/MIN (>=60); GFR NON AFRICAN AMERICAN 64 ML/MIN (>=60); GLUCOSE, SERUM 110 MG/DL (60-99); SODIUM, SERUM 138 MMOL/L (135-148)
[2016-12-02 05:43] LABS: INTERNATIONAL NORMAL RATI 1.4 UNITS (-)
[2016-12-02 05:54] LABS: PROTIME (NOT ORD) 17.3 SEC (12.0-14.5)
[2016-12-03 04:29] LABS: BASOPHILS 0.1 %; BASOPHILS ABSOLUTE 0.01 10/3/uL (0.0-0.16); EOSINOPHILS 0.5 %; EOSINOPHILS ABSOLUTE 0.04 10/3/uL (0.0-0.53); HEMATOCRIT 32.6 % (40.0-51.0); HEMOGLOBIN 10.8 g/dL (13.6-17.8); IMMATURE GRANULOCYTES 0.1 %; IMMATURE GRANULOCYTES ABSOLUTE 0.01 10/3/uL (0.0-0.11); LYMPHOCYTES 16.1 %; LYMPHOCYTES ABSOLUTE 1.22 10/3/uL (0.67-4.30); MEAN CORPUS HGB CONC 33.1 g/dL (32.0-36.0); MEAN CORPUSCULAR HEMOGLOB 32.3 pg (26.0-34.0); MEAN CORPUSCULAR VOLUME 97.6 fL (80-100); MEAN PLATELET VOLUME 8.7 fL (9.2-13.0); MONOCYTES 8.6 %; MONOCYTES ABSOLUTE 0.65 10/3/uL (0.21-1.20); NEUTROPHILS 74.6 %; NEUTROPHILS ABSOLUTE 5.65 10/3/uL (2.02-8.40); PLATELET COUNT 244 10/3/uL (150-400); RED CELL COUNT 3.34 10/6/uL (4.7-6.1); WHITE BLOOD CELLS 7.6 10/3/uL (4.5-10.5)
[2016-12-03 04:31] LABS: MANUAL DIFF NO %
[2016-12-03 04:36] LABS: INTERNATIONAL NORMAL RATI 1.4 UNITS (-); PROTIME (NOT ORD) 17.1 SEC (12.0-14.5)
[2016-12-03 04:41] LABS: BUN (BLOOD UREA NITROGEN) 24 MG/DL (6-23); CALCIUM, SERUM 8.7 MG/DL (8.5-10.4); CHLORIDE, SERUM 103 MMOL/L (96-112); GFR AFRICAN AMERICAN 71 ML/MIN (>=60); GFR NON AFRICAN AMERICAN 61 ML/MIN (>=60); GLUCOSE, SERUM 118 MG/DL (60-99); POTASSIUM, SERUM 4.3 MMOL/L (3.5-5.3); SODIUM, SERUM 138 MMOL/L (135-148)
[2016-12-03 04:42] LABS: CO2 (CARBON DIOXIDE) 30 MMOL/L (24-34)
[2016-12-04 04:25] LABS: INTERNATIONAL NORMAL RATI 1.8 UNITS (-)
[2016-12-04 04:27] LABS: BASOPHILS 0.1 %; BASOPHILS ABSOLUTE 0.01 10/3/uL (0.0-0.16); EOSINOPHILS 0.2 %; EOSINOPHILS ABSOLUTE 0.02 10/3/uL (0.0-0.53); HEMOGLOBIN 9.7 g/dL (13.6-17.8); IMMATURE GRANULOCYTES 0.4 %; IMMATURE GRANULOCYTES ABSOLUTE 0.03 10/3/uL (0.0-0.11); LYMPHOCYTES 18.3 %; LYMPHOCYTES ABSOLUTE 1.47 10/3/uL (0.67-4.30); MEAN CORPUS HGB CONC 33.3 g/dL (32.0-36.0); MEAN PLATELET VOLUME 8.8 fL (9.2-13.0); MONOCYTES 11.2 %; NEUTROPHILS 69.8 %; NEUTROPHILS ABSOLUTE 5.62 10/3/uL (2.02-8.40); PLATELET COUNT 241 10/3/uL (150-400); RBC DISTRIBUTION WIDTH 13.2 % (12.0-16.0); RED CELL COUNT 3.03 10/6/uL (4.7-6.1); WHITE BLOOD CELLS 8.1 10/3/uL (4.5-10.5)
[2016-12-04 04:29] LABS: HEMATOCRIT 29.1 % (40.0-51.0); MANUAL DIFF NO %; PROTIME (NOT ORD) 21.1 SEC (12.0-14.5)
[2016-12-04 04:38] LABS: BUN (BLOOD UREA NITROGEN) 22 MG/DL (6-23); CALCIUM, SERUM 8.5 MG/DL (8.5-10.4); CHLORIDE, SERUM 103 MMOL/L (96-112); CO2 (CARBON DIOXIDE) 28 MMOL/L (24-34); GFR AFRICAN AMERICAN 79 ML/MIN (>=60); GFR NON AFRICAN AMERICAN 68 ML/MIN (>=60); GLUCOSE, SERUM 140 MG/DL (60-99); POTASSIUM, SERUM 3.9 MMOL/L (3.5-5.3); SODIUM, SERUM 139 MMOL/L (135-148)
[2016-12-04 16:10] LABS: ASCORBIC ACID (UR NOT ORDER) NEG (NEG); BILIRUBIN, URINE NEGATIVE (NEG); KETONE, URINE NEGATIVE (NEG); LEUKOCYTE ESTERASE(NOT OR MOD (NEG); WBC (NOT ORDERED) (RFLEX) 45 (0-5)
[2016-12-05 05:17] LABS: BASOPHILS 0.2 %; BASOPHILS ABSOLUTE 0.02 10/3/uL (0.0-0.16); EOSINOPHILS 0.3 %; EOSINOPHILS ABSOLUTE 0.03 10/3/uL (0.0-0.53); HEMATOCRIT 28.3 % (40.0-51.0); HEMOGLOBIN 9.3 g/dL (13.6-17.8); IMMATURE GRANULOCYTES 0.2 %; IMMATURE GRANULOCYTES ABSOLUTE 0.02 10/3/uL (0.0-0.11); LYMPHOCYTES 13.3 %; LYMPHOCYTES ABSOLUTE 1.23 10/3/uL (0.67-4.30); MEAN CORPUS HGB CONC 32.9 g/dL (32.0-36.0); MEAN CORPUSCULAR HEMOGLOB 31.4 pg (26.0-34.0); MEAN CORPUSCULAR VOLUME 95.6 fL (80-100); MEAN PLATELET VOLUME 8.8 fL (9.2-13.0); MONOCYTES 10.3 %; MONOCYTES ABSOLUTE 0.95 10/3/uL (0.21-1.20); NEUTROPHILS 75.7 %; NEUTROPHILS ABSOLUTE 6.99 10/3/uL (2.02-8.40); PLATELET COUNT 257 10/3/uL (150-400); RBC DISTRIBUTION WIDTH 13.5 % (12.0-16.0); RED CELL COUNT 2.96 10/6/uL (4.7-6.1); WHITE BLOOD CELLS 9.2 10/3/uL (4.5-10.5)
[2016-12-05 05:21] LABS: PROTIME (NOT ORD) 22.2 SEC (12.0-14.5)
[2016-12-05 05:26] LABS: MANUAL DIFF NO %
[2016-12-05 05:31] LABS: BUN (BLOOD UREA NITROGEN) 25 MG/DL (6-23); CALCIUM, SERUM 8.6 MG/DL (8.5-10.4); CHLORIDE, SERUM 105 MMOL/L (96-112); CO2 (CARBON DIOXIDE) 28 MMOL/L (24-34); CREATININE 1.14 MG/DL (0.70-1.30); GFR AFRICAN AMERICAN 68 ML/MIN (>=60); GFR NON AFRICAN AMERICAN 58 ML/MIN (>=60); GLUCOSE, SERUM 133 MG/DL (60-99); SODIUM, SERUM 141 MMOL/L (135-148)
[2016-12-05 06:48] LABS: PROCALCITONIN 0.15 ng/mL (<0.5)
[2016-12-06 05:16] LABS: INTERNATIONAL NORMAL RATI 1.8 UNITS (-); PROTIME (NOT ORD) 20.6 SEC (12.0-14.5)
[2016-12-06 05:19] LABS: A/G RATIO 0.5 (0.7-1.9); ALKALINE PHOSPHATASE 66 U/L (45-117); BUN (BLOOD UREA NITROGEN) 25 MG/DL (6-23); CALCIUM, SERUM 8.6 MG/DL (8.5-10.4); CHLORIDE, SERUM 106 MMOL/L (96-112); CO2 (CARBON DIOXIDE) 29 MMOL/L (24-34); CREATININE 1.02 MG/DL (0.70-1.30); GFR AFRICAN AMERICAN 77 ML/MIN (>=60); GFR NON AFRICAN AMERICAN 67 ML/MIN (>=60); GLOBULIN 3.7 G/DL (2.5-4.1); GLUCOSE, SERUM 144 MG/DL (60-99); POTASSIUM, SERUM 3.7 MMOL/L (3.5-5.3); SGOT(AST) 25 U/L (5-40); SGPT(ALT) 16 U/L (5-65); SODIUM, SERUM 141 MMOL/L (135-148); TOTAL BILIRUBIN 0.5 MG/DL (0-1.2); TOTAL PROTEIN 5.4 G/DL (6.0-8.5)
[2016-12-06 05:23] LABS: ALBUMIN 1.7 G/DL (3.5-5.0)
[2016-12-06 05:35] LABS: BASOPHILS 0.1 %; BASOPHILS ABSOLUTE 0.01 10/3/uL (0.0-0.16); EOSINOPHILS 0.7 %; EOSINOPHILS ABSOLUTE 0.06 10/3/uL (0.0-0.53); HEMATOCRIT 28.1 % (40.0-51.0); HEMOGLOBIN 9.2 g/dL (13.6-17.8); IMMATURE GRANULOCYTES 0.2 %; IMMATURE GRANULOCYTES ABSOLUTE 0.02 10/3/uL (0.0-0.11); LYMPHOCYTES 13.2 %; LYMPHOCYTES ABSOLUTE 1.09 10/3/uL (0.67-4.30); MEAN CORPUS HGB CONC 32.7 g/dL (32.0-36.0); MEAN CORPUSCULAR HEMOGLOB 32.1 pg (26.0-34.0); MEAN CORPUSCULAR VOLUME 97.9 fL (80-100); MEAN PLATELET VOLUME 8.9 fL (9.2-13.0); MONOCYTES 8.3 %; MONOCYTES ABSOLUTE 0.68 10/3/uL (0.21-1.20); NEUTROPHILS 77.5 %; NEUTROPHILS ABSOLUTE 6.38 10/3/uL (2.02-8.40); PLATELET COUNT 264 10/3/uL (150-400); RBC DISTRIBUTION WIDTH 13.3 % (12.0-16.0); RED CELL COUNT 2.87 10/6/uL (4.7-6.1); WHITE BLOOD CELLS 8.2 10/3/uL (4.5-10.5)
[2016-12-06 05:37] LABS: MANUAL DIFF NO %
[2016-12-07 05:02] LABS: BASOPHILS 0.2 %; BASOPHILS ABSOLUTE 0.01 10/3/uL (0.0-0.16); EOSINOPHILS 1.6 %; HEMATOCRIT 26.9 % (40.0-51.0); IMMATURE GRANULOCYTES 0.2 %; IMMATURE GRANULOCYTES ABSOLUTE 0.01 10/3/uL (0.0-0.11); LYMPHOCYTES 17.2 %; MANUAL DIFF NO %; MEAN CORPUS HGB CONC 33.5 g/dL (32.0-36.0); MEAN CORPUSCULAR HEMOGLOB 32.7 pg (26.0-34.0); MEAN CORPUSCULAR VOLUME 97.8 fL (80-100); MEAN PLATELET VOLUME 8.6 fL (9.2-13.0); MONOCYTES 7.5 %; MONOCYTES ABSOLUTE 0.48 10/3/uL (0.21-1.20); NEUTROPHILS 73.3 %; PLATELET COUNT 274 10/3/uL (150-400); RBC DISTRIBUTION WIDTH 13.3 % (12.0-16.0); RED CELL COUNT 2.75 10/6/uL (4.7-6.1); WHITE BLOOD CELLS 6.4 10/3/uL (4.5-10.5)
[2016-12-07 05:07] LABS: INTERNATIONAL NORMAL RATI 1.3 UNITS (-); PROTIME (NOT ORD) 16.4 SEC (12.0-14.5)
[2016-12-07 05:14] LABS: BUN (BLOOD UREA NITROGEN) 23 MG/DL (6-23); CALCIUM, SERUM 8.6 MG/DL (8.5-10.4); CHLORIDE, SERUM 104 MMOL/L (96-112); CO2 (CARBON DIOXIDE) 30 MMOL/L (24-34); CREATININE 0.89 MG/DL (0.70-1.30); GFR AFRICAN AMERICAN 90 ML/MIN (>=60); GFR NON AFRICAN AMERICAN 78 ML/MIN (>=60); POTASSIUM, SERUM 3.5 MMOL/L (3.5-5.3); SODIUM, SERUM 141 MMOL/L (135-148)
[2016-12-07 05:15] LABS: GLUCOSE, SERUM 176 MG/DL (60-99)
[2016-12-08 05:10] LABS: BASOPHILS 0.3 %; BASOPHILS ABSOLUTE 0.02 10/3/uL (0.0-0.16); EOSINOPHILS ABSOLUTE 0.14 10/3/uL (0.0-0.53); HEMATOCRIT 29.6 % (40.0-51.0); HEMOGLOBIN 9.8 g/dL (13.6-17.8); IMMATURE GRANULOCYTES 0.1 %; IMMATURE GRANULOCYTES ABSOLUTE 0.01 10/3/uL (0.0-0.11); LYMPHOCYTES 19.9 %; LYMPHOCYTES ABSOLUTE 1.38 10/3/uL (0.67-4.30); MANUAL DIFF NO %; MEAN CORPUS HGB CONC 33.1 g/dL (32.0-36.0); MEAN CORPUSCULAR VOLUME 96.7 fL (80-100); MEAN PLATELET VOLUME 8.5 fL (9.2-13.0); MONOCYTES 8.2 %; MONOCYTES ABSOLUTE 0.57 10/3/uL (0.21-1.20); NEUTROPHILS 69.5 %; PLATELET COUNT 319 10/3/uL (150-400); RBC DISTRIBUTION WIDTH 13.1 % (12.0-16.0); RED CELL COUNT 3.06 10/6/uL (4.7-6.1); WHITE BLOOD CELLS 6.9 10/3/uL (4.5-10.5)
[2016-12-08 05:18] LABS: INTERNATIONAL NORMAL RATI 3.6 UNITS (-)
[2016-12-08 05:19] LABS: PROTIME (NOT ORD) 35.4 SEC (12.0-14.5)
[2016-12-08 05:22] LABS: BUN (BLOOD UREA NITROGEN) 21 MG/DL (6-23); CALCIUM, SERUM 8.5 MG/DL (8.5-10.4); CHLORIDE, SERUM 105 MMOL/L (96-112); CO2 (CARBON DIOXIDE) 26 MMOL/L (24-34); CREATININE 0.98 MG/DL (0.70-1.30); GFR AFRICAN AMERICAN 81 ML/MIN (>=60); GFR NON AFRICAN AMERICAN 70 ML/MIN (>=60); POTASSIUM, SERUM 3.8 MMOL/L (3.5-5.3); SODIUM, SERUM 139 MMOL/L (135-148)
[2016-12-08 05:23] LABS: GLUCOSE, SERUM 134 MG/DL (60-99)
[2016-12-08 14:59] LABS: INTERNATIONAL NORMAL RATI 1.3 UNITS (-)
[2016-12-08 15:04] LABS: PROTIME (NOT ORD) 16.1 SEC (12.0-14.5)
[2016-12-09 08:59] LABS: INTERNATIONAL NORMAL RATI 1.3 UNITS (-); PROTIME (NOT ORD) 15.6 SEC (12.0-14.5)
== END 2016-12-09 17:40 | DRG 469 ==
LOC: 3SO 14:31
PROVIDERS: Nurse Practitioner; Nurse Practitioner Acute Care; Nurse Practitioner Gerontology; Orthopaedic Surgery
PROC: 0SRB02Z Replacement of Left Hip Joint with Metal on Polyethylene Synthetic Substitute, Open Approach (ICD-10-PCS; principal; 2016-11-27)
DX: T84.091A Other mechanical complication of internal left hip prosthesis, initial encounter (principal); G93.40 Encephalopathy, unspecified; J90 Pleural effusion, not elsewhere classified; I13.0 Hypertensive heart and chronic kidney disease with heart failure and stage 1 through stage 4 chronic kidney disease, or unspecified chronic kidney disease; I50.32 Chronic diastolic (congestive) heart failure; D62 Acute posthemorrhagic anemia; N18.3 Chronic kidney disease, stage 3 (moderate); I25.10 Atherosclerotic heart disease of native coronary artery without angina pectoris; Z95.5 Presence of coronary angioplasty implant and graft; Z79.01 Long term (current) use of anticoagulants; Z86.73 Personal history of transient ischemic attack (TIA), and cerebral infarction without residual deficits; N40.0 Benign prostatic hyperplasia without lower urinary tract symptoms; E78.00 Pure hypercholesterolemia, unspecified; I25.2 Old myocardial infarction; Z66 Do not resuscitate
CPT/HCPCS: 36415; 71010; 72170; 80048; 80053; 81001; 82140; 83036; 83735; 83880; 84145; 85025; 85610; 85730; 86850; 86900; 86901; 87086; 88305; 88311; 92610-GN; 93005; 97110-GP; 97162-GP; 97166-GO; 97530-GP; 97535-GO; A9270-GY; C1776; C8929; G8978-CM-GP; G8979-CL-GP; G8996-CK-GN; G8996-CN-GN; G8997-CK-GN; G8997-CN-GN; G8998-CK-GN; G8998-CN-GN; J0690; J1885; J2274; J2370; J2597; J2710; J2795; J3010; J3430; P9059; Q9957